=== PATIENT | female | born 2000 | race Caucasian/White ===

== ENCOUNTER 2022-07-26 12:29 | Emergency (ER) | payer OTHER ==
[2022-07-26] MEDS ORDERED: Ketorolac Tromethamine 30 MG/ML VIAL ONE (16:20)
[2022-07-26] MEDS ORDERED: Cyclobenzaprine 10 MG TAB ONE (16:28)
[2022-07-26 17:57] LABS: Bilirubin Neg (Negative); Blood, Urine 150 (Negative); Glucose, Urine (Dipstick) Normal (Negative); Ketone, Urine Negative (Negative); Leukocyte 500 (Negative); Nitrite Positive (Negative); Protein, Urine (Dipstick) 30 mg/dl (Neg-Trace); Specific Gravity, Urine 1.015 (1.005-1.030); Urobilinogen Normal mg/dL (Less than 2)
[2022-07-26 18:00] LABS: Clarity Cloudy (Clear)
[2022-07-26 18:12] LABS: WBC/HPF 21-50 HPF (0-3)
[2022-07-26 18:13] LABS: Bacteria/HPF 4+ HPF (None Seen); Mucous/LPF 1+ LPF (<2+)
== END 2022-07-26 18:40 | disposition home or self-care (01) ==
LOC: CSHERS 12:29
DX: N30.00 Acute cystitis without hematuria (principal); M25.522 Pain in left elbow; V89.2XXA Person injured in unspecified motor-vehicle accident, traffic, initial encounter
CPT/HCPCS: 71045; 81003; 81015; 87077; 87086; 87186; 96372; J1885